=== PATIENT | male | born 1980 | race Two or more races ===

== ENCOUNTER 2023-08-10 22:50 | Inpatient (IN) | payer OTHER ==
[2023-08-10] MEDS ORDERED: LOPERAMIDE HCL 2 MG CAPSULE PO PRN (23:19)
[2023-08-10] MEDS ORDERED: NALOXONE HCL 0.4 MG/ML VIAL IM PRN (23:19)
[2023-08-10] MEDS ORDERED: POLYETHYLENE GLYCOL (HEALTHYLAX) 3350 17 GM PACKET PO PRN (23:19)
[2023-08-10] MEDS ORDERED: IBUPROFEN 400 MG TABLET (FP) PO PRN (23:19)
[2023-08-10] MEDS ORDERED: chlordiazePOXIDE HCL 25 MG CAPSULE PO PRN (23:19)
[2023-08-10] MEDS ORDERED: MAGNESIUM HYDROX 2400MG/30ML ORAL SUSPENSION 30 ML CUP PO PRN (23:19)
[2023-08-10] MEDS ORDERED: guaiFENesin 600 MG TABLET.ER (FP) PO PRN (23:19)
[2023-08-10] MEDS ORDERED: NALOXONE (NARCAN) HCL 4 MG/0.1 ML SPRAY NS PRN (23:19)
[2023-08-10] MEDS ORDERED: BISMUTH SUBSALICYLATE 524 MG/30 ML PO PRN (23:19)
[2023-08-10] MEDS ORDERED: BENZOCAINE/MENTHOL (CHLORASEPTIC ) LOZENGE MM PRN (23:19)
[2023-08-10] MEDS ORDERED: IBUPROFEN 600 MG TABLET (FP) PO PRN (23:19)
[2023-08-10] MEDS ORDERED: BENZONATATE 200 MG CAPSULE PO PRN (23:19)
[2023-08-10 23:29] VITALS: BMI 18.1
[2023-08-10] MEDS: TRIMETHOBENZAMIDE HCL 200MG/2ML INJ IM PRN (23:38)
[2023-08-11] MEDS: chlordiazePOXIDE HCL 25 MG CAPSULE PO SCH (00:50)
[2023-08-11] MEDS ORDERED: chlordiazePOXIDE HCL 25 MG CAPSULE ONE (01:00)
[2023-08-11] MEDS: cloNIDine HCL 0.1 MG TABLET PO PRN (02:52)
[2023-08-11] MEDS: ONDANSETRON *ODT* 4 MG TABLET SL PRN (04:55)
[2023-08-11] MEDS: hydrOXYzine PAMOATE 25 MG CAPSULE (FP) PO PRN (05:32)
[2023-08-11] MEDS: PRENATAL VITAMINS W/ FOLIC ACID TABLET (FP) PO SCH (10:33)
[2023-08-11] MEDS: FAMOTIDINE 20 MG TABLET PO SCH (10:35)
[2023-08-11 12:05] LABS: CHLORIDE 102 mmol/L (98-107); POTASSIUM 3.8 mmol/L (3.5-5.1); SODIUM 140 mmol/L (136-145)
[2023-08-11 12:06] LABS: HEMATOCRIT 39.1 % (35.4-49); HEMOGLOBIN 12.7 GM/dL (11.7-16.9); MCH 28.1 pg (25.7-33.7); MCHC 32.5 g/dl (32.0-35.9); MEAN CELL VOLUME 86.5 fl (80-96); MEAN PLT VOLUME 8.8 fl (7.5-11.1); PLATELET COUNT 150 10^3/uL (134-434); RBC 4.52 M/mm3 (4.00-5.60); RDW 15.5 % (11.9-15.9); WHITE BLOOD COUNT 7.9 K/mm3 (4.0-10.0)
[2023-08-11 12:14] LABS: ALBUMIN 3.2 g/dl (3.4-5.0); ANION GAP 10 mmol/L (4-13); CO2 27 mmol/L (21-32); GLUCOSE,RANDOM 76 mg/dL (74-106)
[2023-08-11 12:15] LABS: BLOOD UREA NITROGEN 4.9 mg/dL (7-18)
[2023-08-11 12:17] LABS: CREATININE 0.8 mg/dL (0.55-1.3); SGOT/AST 50 U/L (15-37); SGPT/ALT 29 U/L (13-61)
[2023-08-11 12:19] LABS: ALK PHOS 116 U/L (45-117); BILIRUBIN,TOTAL 1.3 mg/dL (0.2-1); TOT PROT 6.7 g/dl (6.4-8.2)
[2023-08-11] MEDS: DICYCLOMINE HCL 10 MG CAPSULE PO PRN (17:21)
[2023-08-11] MEDS: THIAMINE 100 MG TABLET PO SCH (22:40)
[2023-08-11] MEDS: METHOCARBAMOL 500 MG TABLET PO PRN (22:41)
[2023-08-11] MEDS: MELATONIN 5 MG TABLETS PO SCH (22:41)
[2023-08-12] MEDS: chlordiazePOXIDE HCL 25 MG CAPSULE PO SCH (05:32)
[2023-08-12] MEDS: MAG HYDROX/AL HYDROX/SIMETH 30 ML UNIT-DOSE CUP PO PRN (10:15)
[2023-08-13] MEDS ORDERED: chlordiazePOXIDE HCL 10 MG CAPSULE PO PRN
[2023-08-13] MEDS: chlordiazePOXIDE HCL 10 MG CAPSULE PO SCH (05:37)
[2023-08-13] MEDS: ACETAMINOPHEN 325 MG TABLET (FP) PO PRN (14:56)
[2023-08-14] MEDS: chlordiazePOXIDE HCL 10 MG CAPSULE PO SCH (05:34)
[2023-08-15] MEDS: chlordiazePOXIDE HCL 10 MG CAPSULE PO ONE (05:58)
[2023-08-15 08:52] VITALS: BP 145/100; PULSE 90; RESP 14; TEMP 97.8
== END 2023-08-15 08:56 | disposition home or self-care (01) | DRG 775 ==
LOC: YASAS 22:50 → Y3N 08-11 01:16
PROVIDERS: ADMIT Allergy & Immunology; ATTEND Allergy & Immunology
PROC: HZ2ZZZZ Detoxification Services for Substance Abuse Treatment (ICD-10-PCS; principal; 2023-08-11)
DX: F10.230 Alcohol dependence with withdrawal, uncomplicated (principal); F19.24 Other psychoactive substance dependence with psychoactive substance-induced mood disorder; I10 Essential (primary) hypertension; K29.20 Alcoholic gastritis without bleeding; K40.90 Unilateral inguinal hernia, without obstruction or gangrene, not specified as recurrent; Z87.891 Personal history of nicotine dependence; Z87.19 Personal history of other diseases of the digestive system; Z59.01 Sheltered homelessness
CPT/HCPCS: 36415; 80053; 80305; 80307; 85027; 86780; 93005; 93010; Q0162